=== PATIENT | female | born 1985 | race African-American/Black ===

== ENCOUNTER 2021-01-17 11:26 | Emergency (ER) | payer OTHER ==
[~2021-01-17] VITALS: Ht 157.5 cm; Wt 158.1 kg
[2021-01-17] MEDS ORDERED: LIDOCAINE 1% MDV 20ML VIAL SC ONE (12:15)
[2021-01-17 13:28] VITALS: BP 128/80
== END 2021-01-17 13:30 | disposition home or self-care (01) ==
LOC: M ED 11:26
DX: S61.411A Laceration without foreign body of right hand, initial encounter (principal); Y92.009 Unspecified place in unspecified non-institutional (private) residence as the place of occurrence of the external cause; Y93.G1 Activity, food preparation and clean up; Y99.9 Unspecified external cause status; W26.0XXA Contact with knife, initial encounter; I10 Essential (primary) hypertension; F17.200 Nicotine dependence, unspecified, uncomplicated